=== PATIENT | female | born 1970 | race Caucasian/White ===

== ENCOUNTER 2017-03-21 01:45 | Emergency (ER) | payer BC ==
--- NOTE | 2017-03-21 02:08 | ERNOTE ---
ER Female HPI Stated Complaint: PELVIC PAIN,BACK PAIN,ABD PAIN Presenting Symptoms: pelvic pain, dysuria, other - back pain Time Seen by Provider: 03/21/17 01:58 Source: patient, RN notes reviewed Exam Limitations: no limitations Immunizations: IMMUNIZATION HX Immunizations Up to Date Yes History of Influenza Vaccine No Allergies/Adverse Reactions: Allergies Penicillins Allergy (Intermediate, Verified 03/21/17 01:53) Other Rash up leg and "blood poisoning" Home Medications: HOME MEDICATIONS FLUoxetine HCL [Prozac] 60 mg PO DAILY 04/29/14 [Last Taken Unknown] Cyclobenzaprine HCl [Flexeril] 10 mg PO HS PRN 09/15/15 [Last Taken Unknown] Dextrin [Fiber] 1 tbs PO DAILY 09/15/15 [Last Taken Unknown] Gabapentin [Neurontin] 600 mg PO PRN PRN 09/15/15 [Last Taken Unknown] Meloxicam [Mobic] 15 mg PO DAILY PRN 09/15/15 [Last Taken Unknown] Rizatriptan Benzoate [Maxalt] 10 mg PO PRN PRN 09/15/15 [Last Taken Unknown] traZODone HCL [Desyrel] 50 mg PO HS 09/15/15 [Last Taken Unknown] Ciprofloxacin HCl [Cipro] 500 mg PO BID #20 tab 03/21/17 [Last Taken Unknown] Multivitamin [One Daily Multivitamin] 1 each PO DAILY 03/21/17 [Last Taken Unknown] metroNIDAZOLE [Flagyl] 500 mg PO BID #20 tablet 03/21/17 [Last Taken Unknown] - History of Present Illness Timing: Present: constant, getting worse Quality: Present: severe, aching Onset Location: Present: LLQ Radiation: Present: RLQ, left flank Activities at Onset: Present: none Prior Abdominal Problems: Present: none Modifying Factors - (Worsens): Present: defecating, lying down Associated Symptoms: Present: fever/chills, nausea, abdominal pain, dysuria, urinary frequency, low back pain Review of Systems - Review of Systems Constitutional: Absent: recent illness, fever, chills EYE: Present: no symptoms reported ENT: Absent: ear pain, sore throat Respiratory: Absent: shortness of breath, cough Cardiology: Absent: chest pain Gastrointestinal/Abdominal: Present: nausea, abdominal pain. Absent: vomiting, diarrhea Genitourinary: Present: frequency, pain, dysuria Musculoskeletal: Present: back pain. Absent: muscle pain, muscle stiffness, neck pain, joint pain Skin: Present: no symptoms reported Neurological: Present: no symptoms reported Endocrine: Present: no symptoms reported Hematologic/Lymphatic: Present: no symptoms reported Psych: Present: no symptoms reported - Patient's Past Medical History Patient History - Medical: No pertinent hx Patient History - Cardiac/Respiratory: No pertinent hx Patient History - Cancer: No Hx of Cancer Patient History - Surgical Procedures: Cholecystectomy, Hysterectomy, Tubal Ligation Patient History - Other: None - Social History Living Situations: home Abuse History: No History of abuse Psych History: Hx of Depression, Current tx/ever been on anti-depressants or anti-anxiety meds Smoking Status: Never smoker Alcohol Use: none Drug Use: none - Immunizations Immunizations Up to Date: Yes History of Influenza Vaccine: No Physical Exam - Physical Exam General Appearance: Present: moderate distress Head Exam: Present: normal inspection, no evidence of injury Eye Exam: Normal inspection: bilateral, PERRL: bilateral, EOMI: bilateral Ears, Nose, Throat: Present: normal ENT inspection Neck: Present: normal inspection, nontender Respiratory: Present: no respiratory distress, normal breath sounds, no accessory muscle use Cardiovascular/Chest: Present: regular rate, rhythm, no murmur Gastrointestinal/Abdominal: Present: nondistended, soft, tenderness - bilateral lower quadrants, negative Gurvinder's bilaterally, rebound Back Exam: Present: normal inspection, normal range of motion, no CVA tenderness Extremity Exam: Present: normal inspection, non-tender, normal range of motion Neurological Exam: Present: alert, oriented, normal mood/affect Skin Exam: Present: normal color, warm/dry Lymphatic Exam: Present: no adenopathy ED Progress - Vital Signs Patient's Vital Signs:: I have reviewed the patient's vital signs. Vital Signs: Vital Signs 03/21/17 01:49 Temperature 36.5 C Pulse Rate 84 Respiratory 16 Rate Blood Pressure 128/77 O2 Sat by Pulse 98 Oximetry - Progress/Reassessment Chief Complaint: Genitourinary Problem Plan - Plan Plan: Cipro 500 mg PO Metronidazole 500 mg PO Counseled patient on diverticulitis, she is to follow up with her physician, Alex Hopson DO. Departure Clinical Impression: Sigmoid diverticulitis - Departure Disposition: Home self-care Condition: Good Instructions: Diverticulitis, [id number], Low-Fiber Diet Referrals: Alex Hopson MD [Primary Care Provider] - (2-3 days) Prescriptions: Ciprofloxacin HCl [Cipro] 500 mg PO BID #20 tab metroNIDAZOLE [Flagyl] 500 mg PO BID #20 tablet
[2017-03-21 02:17] LABS: Urine Bilirubin Negative (NEGATIVE); Urine Blood Negative /ul (NEGATIVE); Urine Ketone Negative (NEGATIVE); Urine Nitrite Negative (NEGATIVE); Urine Protein Negative (NEGATIVE); Urine Specific Gravity 1.025 SP.GR. (1.005-1.010); Urine Urobilinogen Normal (NORMAL)
[2017-03-21 02:21] LABS: Urine Amorphous Sediment Few - 1+ (NONE-FEW); Urine Appearance Clear; Urine Bacteria 1+; Urine Color Dark Yellow; Urine RBC None Seen /hpf (0-5); Urine WBC None Seen /hpf (0-5)
[2017-03-21 02:28] LABS: Hematocrit 40.3 % (37.0-47.0); Hemoglobin 13.6 gm/dL (12.5-16.0); Mean Cell Volume 88.4 fl (78-100); Mean Corpuscular Hemoglobin 29.8 pg (27-31); Mean Corpuscular Hgb Conc 33.7 g/dl (32-36); Neutrophil # 5.8 K/mm3 (1.3-6.0); Neutrophil % 67.7 % (42-75.0); Platelet Count 225 K/mm3 (150-450); Red Blood Count 4.56 M/mm3 (4.2-5.4); Red Cell Distribution Width 11.9 % (11.5-14.0); White Blood Count 8.6 K/mm3 (4.0-10.5)
[2017-03-21 02:42] LABS: Albumin * 3.8 gm/dl (3.4-5.0); Anion Gap 11.7 mmol/L (6.8-13.8); BUN/Creatinine Ratio 11.3 (9.0-21.6); Bilirubin, Total 0.8 mg/dL (0.0-1.1); Ca. Corrected For Albumin 8.5 mg/dL (8.4-10.2); Calcium * 8.7 mg/dL (7.9-10.9); Carbon Dioxide 28.1 mmol/L (24-32.6); Potassium 3.8 mmol/L (3.4-4.6); Total Protein 7.4 gm/dL (6.2-8.2)
[2017-03-21] MEDS ORDERED: DIATRIZOATE MEGLUMINE, SODIUM 30 ML BTL PO ONE (03:04)
[2017-03-21] MEDS ORDERED: DIATRIZOATE MEGLUMINE, SODIUM 30 ML BTL ONE (03:05)
[2017-03-21] MEDS ORDERED: metroNIDAZOLE 500 MG TABLET PO ONE (05:32)
[2017-03-21] MEDS ORDERED: CIPROFLOXACIN HCL 250 MG TABLET PO ONE (05:32)
[2017-03-21] MEDS ORDERED: CIPROFLOXACIN HCL 250 MG TABLET ONE (05:35)
[2017-03-21] MEDS ORDERED: metroNIDAZOLE 500 MG TABLET ONE (05:35)
[2017-03-21 05:42] VITALS: BP 122/68
== END 2017-03-21 05:48 | disposition home or self-care (01) ==
LOC: ER 01:45
DX: K57.32 Diverticulitis of large intestine without perforation or abscess without bleeding (principal); F41.9 Anxiety disorder, unspecified